=== PATIENT | female | born 1980 | race Caucasian/White ===

== ENCOUNTER 2016-11-27 17:16 | Emergency (ER) | payer BC, OTHER ==
[~2016-11-27 17:16] MED LIST: BACTRIM DS TABL1 TA1 PO; IBUPROFEN PO; KEFLEX500 MG PO; PRENATAL1 TA1 PO; ZOFRAN ODT4 MG/UDTAB DOB
== END 2016-11-27 17:19 | disposition home or self-care (01) ==
LOC: SED 17:16
DX: K08.89 Other specified disorders of teeth and supporting structures (principal); F17.200 Nicotine dependence, unspecified, uncomplicated
CPT/HCPCS: 99283